=== PATIENT | male | born 1940 | race African-American/Black ===

== ENCOUNTER 2016-06-06 14:49 | Inpatient (IN) | payer MEDICARE ==
[~2016-06-06] VITALS: Ht 190.5 cm; Wt 75.0 kg
[2016-06-06 16:13] LABS: APPEARANCE CLEAR (CLEAR); BILIRUBIN NEGATIVE (NEGATIVE); COLOR YELLOW (YELLOW); GLUCOSE NEGATIVE (NEGATIVE); KETONE NEGATIVE (NEGATIVE); LEUKOCYTE ESTERASE NEGATIVE (NEGATIVE); NITRITE NEGATIVE (NEGATIVE); PROTEIN NEGATIVE (NEGATIVE); UROBILINOGEN NORMAL (NORMAL)
[2016-06-06 16:41] LABS: BASOPHILS 0.6 % (0-2); EOSINOPHILS 0.8 % (0-7); HEMATOCRIT 38.4 % (42.0-54.0); HEMOGLOBIN 13.5 g/dL (13.5-17.5); IMMATURE GRANULOCYTES 0.2 % (0-5); LYMPHOCYTES 17.2 % (15-50); MCH 32.8 pg (26.0-34.0); MCHC 35.2 g/dL (31.0-37.0); MCV 93.4 fL (80.0-100.0); MEAN PLATELET VOLUME 11.4 fL (7.4-10.4); MONOCYTES 9.9 % (2-11); NEUTROPHILS 71.3 % (40-80); PLATELET COUNT 148 10x3/uL (130-400); RBC 4.11 10x6/uL (4.20-6.10); RDW 12.4 % (11.5-14.5); WBC 5.1 10x3/uL (4.8-10.8)
[2016-06-06 16:55] LABS: UDS - AMPHET NEGATIVE QUAL (NEGATIVE); UDS - BARB NEGATIVE QUAL (NEGATIVE); UDS - BENZO NEGATIVE QUAL (NEGATIVE); UDS - COCAINE POSITIVE QUAL (NEGATIVE); UDS - METH NEGATIVE QUAL (NEGATIVE); UDS - OPIATE NEGATIVE QUAL (NEGATIVE); UDS - PCP NEGATIVE QUAL (NEGATIVE); UDS - THC NEGATIVE QUAL (NEGATIVE)
[2016-06-06 16:58] LABS: ALBUMIN 3.6 g/dL (3.4-5.0); ALKALINE PHOSPHATASE 80 U/L (46-116); ALT (SGPT) 24 U/L (10-68); BILIRUBIN - TOTAL 0.65 mg/dL (0.2-1.3); CALC OSMOLALITY 280 mosm/kg (275-300); CALCIUM 8.7 mg/dL (8.5-10.1); CARBON DIOXIDE 26.1 mmol/L (21.0-32.0); CHLORIDE - SERUM 105 mmol/L (98-107); CREATININE - SERUM 1.3 mg/dL (0.6-1.3); GLUCOSE 94 mg/dL (74-106); POTASSIUM - SERUM 3.7 mmol/L (3.5-5.1); PROTEIN - SERUM 7.5 g/dL (6.4-8.2); SODIUM 140 mmol/L (136-145); UREA NITROGEN 18 mg/dL (7-18); eGFR NON AFRICAN AMERICAN 57 mL/min (90-120)
[2016-06-06 17:09] LABS: CREATINE KINASE 212 UL (21-232); MAGNESIUM - SERUM 1.9 mg/dL (1.8-2.4); PRO BNP 449 pg/mL (0-125)
[2016-06-06 17:14] LABS: TROPONIN-I < 0.017 ng/mL (0.000-0.060)
--- NOTE | 2016-06-06 21:00 | NUR ---
REC FROM ER VIA WC. AMBULATED TO BED WITH STEADY GAIT. ALERT/ORIENTED X 4. STATES HE LIVES IN [place], [place] AND IS IN TOWN VISITING. STATED HE WAS IN HOSPITAL IN [place] MONDAY AFTER HAVING A TIA. IV IS IN L FA INTACT SL. DENIES PAIN. DID NEURO CHECKS PER ORDER. NO ABNORMALITIES NOTED. ORIENTED TO ROOM AND CALL LIGHT. HE AMBULATED TO BATHROOM TO VOID.
--- NOTE | 2016-06-06 22:16 | NUR ---
GAVE A SNACK OF HOANG CRACKERS AND JUICE. REQUESTED LIGHTS OFF AND DOOR CLOSED TO SLEEP.
[2016-06-06 22:19] VITALS: BP 152/79; Ht 190.5 cm; Wt 75.0 kg
[2016-06-07] MEDS ORDERED: [UNRECOGNIZED DRUG - REMARK] (00:01)
[2016-06-07 00:29] VITALS: BP 119/84
--- NOTE | 2016-06-07 01:11 | NUR ---
RESTING ON RIGHT SIDE WITH EYES CLOSED. RR 18 EVEN U/L. NO S/S OF DISTRESS OR DISCOMFORT. TELEMETRY SHOWS 69 CAFIB ON MONITOR. BED IS LOW WITH SR UP X2. CALL LIGHT IN REACH.
--- NOTE | 2016-06-07 05:21 | NUR ---
SITTING ON SIDE OF BED. REQUESTED MORE ICE WATER. EMPTIED URINAL.
[2016-06-07 09:12] VITALS: BP 126/64
[2016-06-07 12:11] VITALS: BP 121/72
[2016-06-07 15:18] VITALS: BP 145/86
--- NOTE | 2016-06-07 18:12 | NUR ---
ALERT AND ORIENTED X4. RETURN TO ROOM FROM MRI VIA WHEELCHAIR. DENIES PAIN OR SOB. DENIES ANY NEEDS. NO CHANGE. CONTINUE PLAN OF CARE AND SAFETY PRECAUTIONS. RECORDS FROM [facility] OBTAINED PER REQUEST.
--- NOTE | 2016-06-07 19:43 | NUR ---
AWAKE/ALERT ORIENTED X 4. WATCHING TV. EATING SOME COOKIES. DENIES PAIN OR ANY NEEDS. IV L FA INTACT SL. TELEMETRY LEADS IN PLACE, SHOWS 64 SR ON MONITOR. BED IS LOW WITH SR UP X2. ORIENTED TO CALL LIGHT FOR ANY NEEDS.
[2016-06-07 20:18] VITALS: BP 128/88
[2016-06-07 23:57] VITALS: BP 149/71
--- NOTE | 2016-06-08 00:09 | NUR ---
ADMINISTRATION DEAN PRESENT IN ROOM TAKING VS. DENIES ANY NEEDS.
[2016-06-08 03:52] VITALS: BP 139/80
--- NOTE | 2016-06-08 04:27 | NUR ---
FRONT OFFICE DEVELOPER PRESENT IN ROOM. NO NEEDS OR CONCERNS VOICED.
[2016-06-08 04:53] LABS: BASOPHILS 0.5 % (0-2); EOSINOPHILS 4.2 % (0-7); LYMPHOCYTES 38.7 % (15-50); MCH 32.6 pg (26.0-34.0); MCHC 35.1 g/dL (31.0-37.0); MCV 92.7 fL (80.0-100.0); MEAN PLATELET VOLUME 11.5 fL (7.4-10.4); MONOCYTES 13.1 % (2-11); NEUTROPHILS 43.5 % (40-80); PLATELET COUNT 131 10x3/uL (130-400); RBC 3.99 10x6/uL (4.20-6.10); WBC 4.3 10x3/uL (4.8-10.8)
[2016-06-08 05:09] LABS: INR 1.21 (0.85-1.17); PROTIME 15.2 SECONDS (11.6-15.0)
[2016-06-08 05:21] LABS: ALBUMIN 3.4 g/dL (3.4-5.0); BILIRUBIN - TOTAL 0.69 mg/dL (0.2-1.3); CALCIUM 8.7 mg/dL (8.5-10.1); CARBON DIOXIDE 26.9 mmol/L (21.0-32.0); CHOL - HDL RATIO 3.4 ratio (2.3-4.9); CREATININE - SERUM 1.2 mg/dL (0.6-1.3); LDL-HDL RATIO 2.2 ratio (1.5-3.5); MAGNESIUM - SERUM 1.8 mg/dL (1.8-2.4); PHOSPHOROUS 2.8 mg/dL (2.5-4.9); POTASSIUM - SERUM 3.9 mmol/L (3.5-5.1); PROTEIN - SERUM 6.9 g/dL (6.4-8.2); THYROID STIMULATING HORMONE 0.9 uIU/mL (0.36-3.74)
[2016-06-08 07:30] VITALS: BP 158/90
[2016-06-08 12:30] VITALS: BP 158/90
[2016-06-08 16:30] VITALS: BP 137/84
--- NOTE | 2016-06-08 17:06 | NUR ---
PATIENT IS RESTING IN HIS BED WITHOUT C/O ANY KIND. NO NEEDS NOTED. CALL LIGHT IS WITHIN HIS REACH. HE IS WATCHING TV.
[2016-06-08 19:00] VITALS: BP 180/90
--- NOTE | 2016-06-08 19:35 | NUR ---
PT RECEIVED LYING IN BED RESTING QUIETLY AT THIS TIME. AAOX3. S/L NOTED TO LEFT FOREARM. DRESSING CDI. HEART SOUNDS REGULAR. SINUS BRADYCARDIA 45 BPM. LUNG SOUNDS CLEAR BILATERALLY. BOWEL SOUNDS ACTIVE X4 QUADRENTS. PEDAL PULSES EQUAL BILATERALLY. PT DENIES NEEDS AT THIS TIME. BED LOW. PHONE AND CALL LIGHT IN REACH. SRX2.
--- NOTE | 2016-06-08 21:35 | NUR ---
PT RESTING QUIETLY AT THIS TIME WITH EYES CLOSED. RESPIRATIONS EVEN, NON-LABORED. NO ACUTE DISTRESS NOTED AT THIS TIME. BED LOW. PHONE AND CALL LIGHT IN REACH. SRX2.
--- NOTE | 2016-06-08 21:59 | NUR ---
ELEQUIS PO ADMINISTERED AT THIS TIME PER ORDERS. PT DENIES NEEDS. BED LOW. PHONE AND CALL LIGHT IN REACH. SRX2.
[2016-06-09] VITALS: BP 145/83
[2016-06-09 03:49] LABS: BASOPHILS 0.2 % (0-2); HEMATOCRIT 37.4 % (42.0-54.0); HEMOGLOBIN 13.1 g/dL (13.5-17.5); LYMPHOCYTES 44.4 % (15-50); MCH 32.1 pg (26.0-34.0); MCV 91.7 fL (80.0-100.0); MEAN PLATELET VOLUME 11.3 fL (7.4-10.4); MONOCYTES 13.2 % (2-11); NEUTROPHILS 38.2 % (40-80); PLATELET COUNT 143 10x3/uL (130-400); RBC 4.08 10x6/uL (4.20-6.10); RDW 11.8 % (11.5-14.5); WBC 4.6 10x3/uL (4.8-10.8)
[2016-06-09 04:00] VITALS: BP 137/74
[2016-06-09 04:02] LABS: ANION GAP 8.3 mmol/L (8-16); CALCIUM 8.7 mg/dL (8.5-10.1); CARBON DIOXIDE 27.6 mmol/L (21.0-32.0); CREATININE - SERUM 1.2 mg/dL (0.6-1.3); POTASSIUM - SERUM 3.9 mmol/L (3.5-5.1)
--- NOTE | 2016-06-09 07:17 | NUR ---
PT SITTING UP IN BED DENIES NEEDS WILL CONT TO MONITOR
[2016-06-09 08:00] VITALS: BP 156/81
--- NOTE | 2016-06-09 10:59 | EC ---
PATIENT:RADHA CONTE DATE OF SERVICE: 06/06/16 SEX: M MEDICAL RECORD: [id number] DATE OF : [birth year] LOCATION:[address]. D.211 AGE OF PATIENT: 75 ADMISSION DATE: 06/08/16 REFERRING PHYSICIAN: INTERPRETING PHYSICIAN: KIMMY WARD M.D. ECHOCARDIOGRAM REPORT ECHO CHARGES 4 ECHO COMPLETE CLINICAL DIAGNOSIS: CVA ASSES FOR CLOTS HX HTN ECHOCARDIOGRAPHIC MEASUREMENTS (adult normal given) AC root (d.<3.7cm) 3.8 LV Septum d (<1.2 cm> 1.5 Valve Excursion 2.2 LV Septum (systole) 1.7 Left Atria (s.<4.0cm> 4.3 LVPW d(<1.2cm) 1.6 RV (d.<2.3cm) 4.8 LVPW (sytole) 1.7 LV diastole(<5.6CM) 3.9 MV E-F(>70mm/sec) LV systole 2.5 LVOT Diameter 1.9 MV exc.(>10mm) 1.5 Est.ejection fraction (50-75%) Pericardial Effusion N DOPPLER: LVIT A 78.0 E 72.0 LA RVSP 37 LVOT 92 AOP1/2T Asc. Ao 132 RVOT 65 RA PA 96 AV Gradient Peak 6.95 AV Mean 3.85 AV Area 1.7 MV Gradient Peak 3.42 MV Mean 1.36 MV Area COMMENTS: Clinical Nurse Specialist: Veena GRIMM Llama Farmer:2 Dr. Ward TAPE# PACS DATE OF SERVICE: 06/07/2016 INDICATION: CVA. REFERRING PHYSICIAN: Ender Pulido DO DESCRIPTION: Left ventricle demonstrates left ventricular hypertrophy. No wall motion abnormalities are noted. Estimated ejection fraction is 55%. Mitral valve is structurally normal. There is mild regurgitation seen. Left atrium is mildly dilated. The aortic valve is trileaflet. There is no insufficiency or ECHOCARDIOGRAM REPORT [id number] RADHA CONTE stenosis seen. Leaflets are slightly thickened. Right ventricle is mildly dilated. Tricuspid valve is structurally normal. There is mild regurgitation seen. Right ventricular systolic pressure is elevated at 37 mmHg. Right atrium is normal in size. There is no pericardial effusion seen. IMPRESSION: 1. Left ventricular hypertrophy with preserved ejection fraction of 55%. 2. Mild mitral regurgitation. 3. Aortic valve sclerosis without stenosis. 4. Mild tricuspid regurgitation. 5. No evidence of any mass or lesion on the semilunar valves. 6. No evidence of ventricular thrombus. TRANSINT:[id number] Voice Confirmation ID: [id number] DOCUMENT ID: [id number] KIMMY WARD M.D. at 1059 CC: [id number] DICTATION DATE: 06/07/16 1510 MANAGER RISK MANAGEMENT: 06/07/16 1545 ADM IN [place] [id number] [place] [id number]
[2016-06-09 12:00] VITALS: BP 143/85
[2016-06-09 16:00] VITALS: BP 157/82
--- NOTE | 2016-06-09 16:46 | NUR ---
Patient Name: JIM CONTE Admission Status: ER Accout number: [id number] Admission Date: 06-08-2016 : 1940 Admission Diagnosis: Attending: IOANA Current LOS: 1 Anticipated DC Date: 06-10-2016 Planned Disposition: Home Primary Insurance: MEDICARE A & B Discharge Planning Comments: * Is the patient Alert and Oriented? Yes 0 * How many steps to enter\\exit or inside your home? NONE 0 * PCP NONE 0 * Pharmacy [facility] IN [place] OR "ANYWHERE I CAN" 0 * Preadmission Environment Home with Family 0 * ADLs Independent 0 * Equipment Cane 0 * Other Equipment NO MEDICAL EQUIPMENT PROVIDER PREFERENCE 0 * List name and contact numbers for known caregivers / representatives who currently or will assist patient after discharge: HERB NOLEN, FRIEND, 0 * Community resources currently utilized None 0 * Please name any agencies selected above. NONE 0 * Additional services required to return to the preadmission environment? No 0 * Can the patient safely return to the preadmission environment? Yes 0 * Has this patient been hospitalized within the prior 30 days at any hospital? Yes 0 CM MET WITH PT IN ROOM TO DISCUSS DISCHARGE PLANNING AND NEEDS. PT REPORTS LIVING AT HOME INDEPENDENTLY WITH FRIENDS IN [place]. PT HAS A CANE AND NO MEDICAL EQUIPMENT PROVIDER. PT HAS NO OUTSIDE SERVICES ASSISTING IN THE HOME. CM DISCUSSED AVAILABILITY OF HOME HEALTH, REHAB SERVICES AND MEDICAL EQUIPMENT. PT DENIES DISCHARGE NEEDS, REPORTS HIS FRIEND WILL PICK HIM UP FOR DISCHARGE HOME. IMPORTANT MESSAGE FROM MEDICARE PROVIDED AND EXPLAINED. Chain Hoist Operator: Jim Galeas
--- NOTE | 2016-06-09 17:19 | NUR ---
PT SITTING UP IN BED EATING DINNER DENIES NEEDS WILL CONT TO MONITOR
--- NOTE | 2016-06-09 19:28 | NUR ---
Received patient sitting up at edge of bed, call light going off, patient states he didn't know he had pushed it. No voiced complaints at this time. Ambulated in room with steady gait, no SOB, respirations easy and regular on room air. quality assurance monitor on - rhythm SR. PIV in left forearm is currently SL. Alert and oriented x 4. Will continue to monitor.
[2016-06-09 20:00] VITALS: BP 159/95
--- NOTE | 2016-06-09 21:30 | NUR ---
Up ambulating in hallway, no voiced complaints and no signs of distress.
--- NOTE | 2016-06-09 22:26 | NUR ---
coil winder strap on, reviewed rhythm strip with mobile home technician. Rhythm SB, first degree block, with frequent PAC's, HR varies between 54-59/min at this time. Patient symptomatic, pleasant and denies pain, palpitations, dizziness, or discomfort.
--- NOTE | 2016-06-09 23:39 | NUR ---
Patient in bed with eyes closed, respirations easy and regular, no signs of distress, deemed to be sleeping.
[2016-06-10] VITALS: BP 140/71
[2016-06-10 04:00] VITALS: BP 155/84
[2016-06-10 05:34] LABS: BASOPHILS 0.5 % (0-2); EOSINOPHILS 3.8 % (0-7); LYMPHOCYTES 38.7 % (15-50); MCHC 36.1 g/dL (31.0-37.0); MCV 91.4 fL (80.0-100.0); MEAN PLATELET VOLUME 11.5 fL (7.4-10.4); MONOCYTES 13.6 % (2-11); NEUTROPHILS 43.4 % (40-80); PLATELET COUNT 134 10x3/uL (130-400); RBC 3.94 10x6/uL (4.20-6.10); RDW 11.9 % (11.5-14.5); WBC 4.4 10x3/uL (4.8-10.8)
--- NOTE | 2016-06-10 05:40 | NUR ---
Slept well, no voiced complaints, HR did drop to mid 40's a few times but mostly stayed in the 50's/min. Continues to wear telemetry, rhythm SB, with first degree block and PACs.
[2016-06-10 05:48] LABS: ANION GAP 11.5 mmol/L (8-16); CALCIUM 8.7 mg/dL (8.5-10.1); CARBON DIOXIDE 28.3 mmol/L (21.0-32.0); CREATININE - SERUM 1.1 mg/dL (0.6-1.3); POTASSIUM - SERUM 3.8 mmol/L (3.5-5.1)
[2016-06-10] MEDS ORDERED: LIPITOR10 MG PO (07:02)
[2016-06-10] MEDS ORDERED: ELIQUIS5 MG PO (07:02)
[2016-06-10] MEDS ORDERED: NORVASC5 MG PO (07:02)
--- NOTE | 2016-06-10 07:05 | NUR ---
PT SITTING UP IN BED WATCHING TV DENIES NEEDS WILL CONT TO MONITOR
[2016-06-10 08:00] VITALS: BP 166/101
--- NOTE | 2016-06-10 08:42 | NUR ---
WENT OVER DC PAPERWORK WITH PT AND PT VERBALIZES UNDERSTANDING. DC PIV WITH CATH TIP INTACT. PT WAITING ON HIS RIDE. I ACCIDENTALLY WAS DC IN COMPUTER, I HAVE CALLED ER ADMISSIONS X4 TIMES, NOT ANSWERING TO PUT THE PT BACK IN
--- NOTE | 2016-06-10 08:51 | NUR ---
PT REFUSED TO HAVE WHEELCHAIR, WALKED OUT OF HOSPITAL HIMSELF. FRIEND PICKING HIM UP DOWNSTAIRS.
== END 2016-06-10 08:21 | disposition home or self-care (01) | DRG 310 ==
LOC: D.ER 14:49 → D.M2 20:51 → OBSVTIME 20:54 → D.M2 06-08 16:14
PROVIDERS: Emergency Medicine; Family Medicine; ADMIT Family Medicine
DX: I48.0 Paroxysmal atrial fibrillation (principal); F14.10 Cocaine abuse, uncomplicated; H40.9 Unspecified glaucoma; R00.1 Bradycardia, unspecified; Z79.01 Long term (current) use of anticoagulants; Z72.0 Tobacco use; Z86.73 Personal history of transient ischemic attack (TIA), and cerebral infarction without residual deficits

== ENCOUNTER 2017-01-09 14:58 | Emergency (ER) | payer MEDICARE ==
[2016-06-06 22:19] VITALS: BMI 20.6
[~2017-01-09 14:58] MED LIST: ELIQUIS5 MG PO; LIPITOR10 MG PO; NORVASC5 MG PO; [UNRECOGNIZED DRUG - REMARK]
== END 2017-01-09 18:42 | disposition home or self-care (01) ==
LOC: D.ER 14:58
DX: S16.1XXA Strain of muscle, fascia and tendon at neck level, initial encounter (principal); V43.62XA Car passenger injured in collision with other type car in traffic accident, initial encounter; Y93.89 Activity, other specified; Y92.410 Unspecified street and highway as the place of occurrence of the external cause; M62.838 Other muscle spasm; S29.012A Strain of muscle and tendon of back wall of thorax, initial encounter; S39.012A Strain of muscle, fascia and tendon of lower back, initial encounter; M62.830 Muscle spasm of back; I10 Essential (primary) hypertension; Z86.73 Personal history of transient ischemic attack (TIA), and cerebral infarction without residual deficits